=== PATIENT | male | born 1945 | race Caucasian/White ===

== ENCOUNTER 2020-06-23 14:15 | Inpatient (IN) | payer MEDICARE ==
[~2020-06-23] VITALS: Ht 180.3 cm; Wt 62.7 kg
--- NOTE | 2020-06-23 14:44 | NUR ---
Pt arrives with his niece who he lives with. Niece reports pt called this morning saying he was bleeding from his surgical scar as he caught a button on it. Bleeding controlled but very red, oozing red tinged drainage so decided to bring to ED. Reports allerlgies to penicillins. Reports surgery for right hernia repair was March 02 2020, hospitalized again April 05 for round 2 of antibiotics. Not currently taking antibiotics. Pt presents with swelling and redness in right groin and into scrotum. Currently oozing. Dr. Car collected swab from wound.
[2020-06-23 15:11] LABS: BASOPHILS % (AUTO) 1 % (0-1); EOSINOPHILS % (AUTO) 0 % (1-7); LYMPHOCYTES % (AUTO) 8 % (22-44); MEAN CORPUSCULAR HEMOGLOBIN 27.9 pg (27.5-34.5); MEAN CORPUSCULAR HGB CONC 32.8 g/dL (33.2-36.2); MEAN PLATELET VOLUME 7.6 fL (7.4-10.4); MONOCYTES % (AUTO) 13 % (2-9); NEUTROPHILS % (AUTO) 77 % (42-75); PLATELET COUNT 419 x10^3/uL (130-400); RED BLOOD COUNT 3.83 x10^6/uL (4.38-5.82); RED CELL DISTRIBUTION WIDTH 18.2 % (9.4-14.8)
[2020-06-23 15:21] LABS: ALANINE AMINOTRANSFERASE 33 U/L (12-78); ALBUMIN 2.4 g/dL (3.4-5.0); ANION GAP 8 mmol/L (5-15); CALCIUM 8.5 mg/dL (8.5-10.1); CHLORIDE 104 mmol/L (98-107); CREATININE 0.89 mg/dL (0.7-1.3)
[2020-06-23 15:23] LABS: ALKALINE PHOSPHATASE 132 U/L (45-117); BILIRUBIN,TOTAL 0.5 mg/dL (0.2-1.0); TOTAL PROTEIN 8.3 g/dL (6.4-8.2)
--- NOTE | 2020-06-23 15:44 | NUR ---
Requested Invanz from pharmacy. IV 20g started in left AC, second set of cutlrues drawn.
--- NOTE | 2020-06-23 15:50 | NUR ---
Pt back from CT.
--- NOTE | 2020-06-23 15:52 | NUR ---
Pt's niece Lindsey is going home. Her phone number is [phone]
[2020-06-23] MEDS ORDERED: OMNIPAQUE 350 MG/ML, 100ML BOTTLE ONE (15:56)
[2020-06-23] MEDS ORDERED: ERTAPENEM 1 GM in SODIUM CHLORIDE 0.9% 50 ML IV ONE (16:00)
[2020-06-23] MEDS ORDERED: SODIUM CHLORIDE FLUSH 10ML SYR IVF ONE (16:00)
--- NOTE | 2020-06-23 16:00 | NUR ---
Requested antibiotic from pharmacy.
[2020-06-23 16:05] LABS: ANISOCYTOSIS 1+; MD MORPH REVIEW ONLY; OVALOCYTES 1+
[2020-06-23 16:06] LABS: <PLATELET ESTIMATE> INCREASED; <PLT MORPHOLOGY> NORMAL PLT MORPH
--- NOTE | 2020-06-23 16:30 | NUR ---
Changed pt's depends and sheets. Hooked up to vehicle monitor technician.
--- NOTE | 2020-06-23 16:46 | NUR ---
Dr. Duncan at bedside.
[2020-06-23] MEDS ORDERED: ONDANSETRON ODT 4 MG PO PRN (17:00)
[2020-06-23] MEDS ORDERED: KETOROLAC 30 MG/1 ML IV PRN (17:00)
[2020-06-23] MEDS ORDERED: ACETAMINOPHEN 325 MG TABLET PO PRN (17:00)
[2020-06-23] MEDS: LACTATED RINGERS 1,000 ML IV SCH (17:00)
[2020-06-23] MEDS ORDERED: MELATONIN 5 MG TABLET PO PRN (17:00)
[2020-06-23] MEDS ORDERED: VANCOMYCIN PER PHARMACY MC PRN (17:00)
[2020-06-23] MEDS ORDERED: morphine SULFATE 10 MG/ML, 1ML IVPush PRN (17:00)
--- NOTE | 2020-06-23 17:26 | NUR ---
2 sets of blood cultures have been drawn and are in lab.
--- NOTE | 2020-06-23 17:26 | NUR ---
Received antibiotics from pharmacy.
--- NOTE | 2020-06-23 18:10 | NUR ---
Pt on quality assurance monitor final, changes in t-waves noted. Ordering EKG.
--- NOTE | 2020-06-23 18:56 | NUR ---
Called pharmacy to verify vancomycin.
--- NOTE | 2020-06-23 19:08 | NUR ---
Pt's niece Lindsey at bedside.
--- NOTE | 2020-06-23 19:11 | NUR ---
Pharmacy verified Vancomycin. Requesting with yellow sheet now.
[2020-06-23] MEDS ORDERED: VANCOMYCIN 1,500 MG in SODIUM CHLORIDE 0.9% 250 ML IV ONE (19:30)
[2020-06-23] MEDS ORDERED: PHARMACOKINETIC MONITORING MC PRN (19:30)
--- NOTE | 2020-06-23 19:30 | NUR ---
Pt's niece at bedside. Vancomycin infusing per [facility].
--- NOTE | 2020-06-23 20:10 | NUR ---
Report called to [facility].
[2020-06-23 20:51] VITALS: BP 127/67
[2020-06-23] MEDS ORDERED: DONE5TAB7 PO (23:13)
[2020-06-24 02:27] VITALS: BP 112/62
[2020-06-24] MEDS: LACTATED RINGERS 1,000 ML IV SCH ×2 (05:03→21:15)
[2020-06-24 06:20] LABS: BASOPHILS % (AUTO) 1 % (0-1); EOSINOPHILS % (AUTO) 3 % (1-7); LYMPHOCYTES % (AUTO) 12 % (22-44); MEAN CORPUSCULAR HEMOGLOBIN 27.8 pg (27.5-34.5); MEAN CORPUSCULAR HGB CONC 32.4 g/dL (33.2-36.2); MEAN PLATELET VOLUME 8.9 fL (7.4-10.4); MONOCYTES % (AUTO) 13 % (2-9); NEUTROPHILS % (AUTO) 71 % (42-75); PLATELET COUNT 355 x10^3/uL (130-400); RED BLOOD COUNT 3.75 x10^6/uL (4.38-5.82)
[2020-06-24 06:22] LABS: MD NO
[2020-06-24 06:27] LABS: ALANINE AMINOTRANSFERASE 26 U/L (12-78); ALBUMIN 1.8 g/dL (3.4-5.0); ANION GAP 8 mmol/L (5-15); CHLORIDE 107 mmol/L (98-107); CREATININE 0.65 mg/dL (0.7-1.3)
[2020-06-24 06:29] LABS: ALKALINE PHOSPHATASE 111 U/L (45-117); BILIRUBIN,TOTAL 0.5 mg/dL (0.2-1.0); TOTAL PROTEIN 6.9 g/dL (6.4-8.2)
[2020-06-24 07:16] VITALS: BP 138/71
[2020-06-24] MEDS: SENNA/DOCUSATE TABLET PO SCH (09:00)
[2020-06-24 12:22] VITALS: BP 124/73
[2020-06-24 12:38] VITALS: BP 164/93
[2020-06-24] MEDS ORDERED: BUPIVACAINE/PF 0.5% ONE (12:49)
[2020-06-24] MEDS: VANCOMYCIN 1,200 MG in SODIUM CHLORIDE 0.9% 250 ML IV SCH ×2 (13:00→19:45)
[2020-06-24] MEDS ORDERED: CHLORHEXIDINE 15 ML UDC ONE (13:20)
[2020-06-24] MEDS ORDERED: CHLORHEXIDINE 15 ML UDC MM ONE (13:30)
[2020-06-24] MEDS ORDERED: FENTANYL PF 100 MCG/2ML ONE ×2 (14:33→15:11)
[2020-06-24] MEDS ORDERED: ONDANSETRON 2MG/ML, 2ML ONE (14:46)
[2020-06-24] MEDS ORDERED: CEFAZOLIN 1,000 MG ONE (14:46)
[2020-06-24] MEDS ORDERED: PROPOFOL 10 MG/ML, 20ML ONE (14:46)
[2020-06-24] MEDS ORDERED: METHOCARBAMOL 1,000 MG in DEXTROSE 5% 100 ML IV PRN (16:00)
[2020-06-24] MEDS ORDERED: ONDANSETRON 2MG/ML, 2ML IVPush PRN (16:00)
[2020-06-24] MEDS ORDERED: PROMETHAZINE 25 MG SUPP PR PRN (16:00)
[2020-06-24] MEDS ORDERED: FENTANYL PF 100 MCG/2ML IV PRN (16:00)
[2020-06-24] MEDS ORDERED: HYDROmorphone 1 MG/ML, 1ML INJ IVPush PRN (16:00)
[2020-06-24] MEDS ORDERED: OXYcodone 5 MG/5 ML ORAL.SOL UDC PO PRN (16:00)
[2020-06-24] MEDS ORDERED: ACETAMINOPHEN 325 MG TABLET PO PRN (16:00)
[2020-06-24] MEDS ORDERED: PROMETHAZINE 25 MG/ML, 1ML IVPush PRN (16:00)
[2020-06-24 19:40] VITALS: BP 127/68
[2020-06-24] MEDS ORDERED: VANCOMYCIN 1,200 MG in SODIUM CHLORIDE 0.9% 250 ML IV SCH (22:00)
[2020-06-25 00:03] VITALS: BP 116/63
[2020-06-25] MEDS: KETOROLAC 30 MG/1 ML IV PRN ×2 (01:38→08:58)
[2020-06-25] MEDS: LACTATED RINGERS 1,000 ML IV SCH (04:33)
[2020-06-25 07:10] VITALS: BP 120/74
[2020-06-25] MEDS: MEROPENEM 1 GM in SODIUM CHLORIDE 0.9% 100 ML IV SCH ×2 (08:59→17:34)
[2020-06-25] MEDS: SENNA/DOCUSATE TABLET PO SCH (11:19)
[2020-06-25 15:28] VITALS: BP 113/60
[2020-06-25] MEDS: ENOXAPARIN 40 MG/0.4 ML SQ SCH (17:36)
[2020-06-25 19:56] VITALS: BP 105/62
[2020-06-25] MEDS: VANCOMYCIN 1,200 MG in SODIUM CHLORIDE 0.9% 250 ML IV SCH (19:58)
[2020-06-25] MEDS: SODIUM CHLORIDE 0.9% 1,000 ML IV SCH (19:58)
[2020-06-26 01:00] VITALS: BP 112/63
[2020-06-26] MEDS: MEROPENEM 1 GM in SODIUM CHLORIDE 0.9% 100 ML IV SCH ×3 (01:15→16:50)
[2020-06-26] MEDS: SODIUM CHLORIDE 0.9% 1,000 ML IV SCH (06:26)
[2020-06-26 06:59] VITALS: BP 117/70
[2020-06-26] MEDS: POLYETHYLENE GLYCOL 17 GM PACKET PO PRN (08:26)
[2020-06-26] MEDS: SENNA/DOCUSATE TABLET PO SCH (08:26)
[2020-06-26 14:30] VITALS: BP 112/65
[2020-06-26] MEDS ORDERED: POLYETHYLENE GLYCOL 17 GM PACKET NG ONE (15:00)
[2020-06-26] MEDS: ENOXAPARIN 40 MG/0.4 ML SQ SCH (15:27)
[2020-06-26 19:55] VITALS: BP 106/59
[2020-06-26] MEDS: VANCOMYCIN 1,200 MG in SODIUM CHLORIDE 0.9% 250 ML IV SCH (20:16)
[2020-06-27] MEDS: MEROPENEM 1 GM in SODIUM CHLORIDE 0.9% 100 ML IV SCH ×3 (01:16→17:19)
[2020-06-27 01:18] VITALS: BP 118/64
[2020-06-27 04:49] LABS: CREATININE 0.69 mg/dL (0.7-1.3)
[2020-06-27 07:39] VITALS: BP 116/65
[2020-06-27 08:25] LABS: BASOPHILS % (AUTO) 1 % (0-1); EOSINOPHILS % (AUTO) 10 % (1-7); LYMPHOCYTES % (AUTO) 15 % (22-44); MEAN CORPUSCULAR HEMOGLOBIN 27.8 pg (27.5-34.5); MEAN CORPUSCULAR HGB CONC 32.2 g/dL (33.2-36.2); MEAN PLATELET VOLUME 8.5 fL (7.4-10.4); MONOCYTES % (AUTO) 16 % (2-9); NEUTROPHILS % (AUTO) 58 % (42-75); PLATELET COUNT 379 x10^3/uL (130-400); RED BLOOD COUNT 3.92 x10^6/uL (4.38-5.82); RED CELL DISTRIBUTION WIDTH 18.4 % (9.4-14.8)
[2020-06-27] MEDS: SENNA/DOCUSATE TABLET PO SCH (08:40)
[2020-06-27] MEDS: POLYETHYLENE GLYCOL 17 GM PACKET PO PRN (08:40)
[2020-06-27 09:01] LABS: MD SCAN
[2020-06-27] MEDS: KETOROLAC 30 MG/1 ML IV PRN (11:02)
[2020-06-27 14:09] VITALS: BP 101/50
[2020-06-27] MEDS: VANCOMYCIN 1,400 MG in SODIUM CHLORIDE 0.9% 250 ML IV SCH (14:21)
[2020-06-27] MEDS ORDERED: PINK LADY ENEMA 490 ML BOTTLE PR SCH (16:30)
[2020-06-27] MEDS: METOCLOPRAMIDE 5 MG/ML, 2ML IVPush SCH (18:00)
[2020-06-27] MEDS: ENOXAPARIN 40 MG/0.4 ML SQ SCH (18:01)
[2020-06-27 19:55] VITALS: BP 114/62
[2020-06-27 21:35] VITALS: BP 128/62
[2020-06-28 00:02] VITALS: BP 108/65
[2020-06-28] MEDS: METOCLOPRAMIDE 5 MG/ML, 2ML IVPush SCH ×4 (00:06→17:37)
[2020-06-28] MEDS: MEROPENEM 1 GM in SODIUM CHLORIDE 0.9% 100 ML IV SCH ×3 (01:16→17:36)
[2020-06-28 06:00] VITALS: BP 115/68
[2020-06-28 07:22] VITALS: BP 133/68
[2020-06-28] MEDS: SENNA/DOCUSATE TABLET PO SCH (08:59)
[2020-06-28] MEDS: POLYETHYLENE GLYCOL 17 GM PACKET PO PRN (09:00)
[2020-06-28 13:28] VITALS: BP 118/66
[2020-06-28] MEDS: VANCOMYCIN 1,400 MG in SODIUM CHLORIDE 0.9% 250 ML IV SCH (14:52)
[2020-06-28] MEDS: ENOXAPARIN 40 MG/0.4 ML SQ SCH (17:37)
[2020-06-28 19:14] VITALS: BP 93/61
[2020-06-29 00:01] VITALS: BP 115/74
[2020-06-29] MEDS: MEROPENEM 1 GM in SODIUM CHLORIDE 0.9% 100 ML IV SCH ×3 (01:10→16:47)
[2020-06-29] MEDS: METOCLOPRAMIDE 5 MG/ML, 2ML IVPush SCH ×4 (01:10→16:47)
[2020-06-29 07:06] VITALS: BP 104/68
[2020-06-29] MEDS: SENNA/DOCUSATE TABLET PO SCH (07:59)
[2020-06-29 13:27] VITALS: BP 131/63
[2020-06-29] MEDS: LINEZOLID 600 MG TABLET PO SCH ×2 (14:15→20:48)
[2020-06-29] MEDS: ENOXAPARIN 40 MG/0.4 ML SQ SCH (16:30)
[2020-06-29 18:37] VITALS: BP 103/53
[2020-06-30] MEDS: METOCLOPRAMIDE 5 MG/ML, 2ML IVPush SCH ×3 (00:31→11:31)
[2020-06-30 01:09] VITALS: BP 90/56
[2020-06-30] MEDS: MEROPENEM 1 GM in SODIUM CHLORIDE 0.9% 100 ML IV SCH ×2 (01:13→08:34)
[2020-06-30 07:06] VITALS: BP 107/61
[2020-06-30] MEDS: POLYETHYLENE GLYCOL 17 GM PACKET PO PRN (08:33)
[2020-06-30] MEDS: LINEZOLID 600 MG TABLET PO SCH (08:34)
[2020-06-30] MEDS: SENNA/DOCUSATE TABLET PO SCH (08:34)
[2020-06-30] MEDS ORDERED: LINE600T15 PO (13:47)
[2020-06-30] MEDS ORDERED: MERO1VIA24 IVPB (13:47)
[2020-06-30] MEDS ORDERED: LACT1CAP35 PO (13:48)
[2020-06-30 13:54] VITALS: BP 112/58
== END 2020-06-30 16:45 | DRG 907 ==
LOC: ED 14:54 → EDIP 16:44 → SUATTDRO 16:49 → 3N 20:50
PROVIDERS: ADMIT Internal Medicine; ATTEND Internal Medicine
PROC: 0WPF0JZ Removal of Synthetic Substitute from Abdominal Wall, Open Approach (ICD-10-PCS; 2020-06-24)
PROC: 0J9C0ZZ Drainage of Pelvic Region Subcutaneous Tissue and Fascia, Open Approach (ICD-10-PCS; principal; 2020-06-24 14:00)
PROC: 02HV33Z Insertion of Infusion Device into Superior Vena Cava, Percutaneous Approach (ICD-10-PCS; 2020-06-28)
PROC: B5181ZA Fluoroscopy of Superior Vena Cava using Low Osmolar Contrast, Guidance (ICD-10-PCS; 2020-06-28)
PROC: B548ZZA Ultrasonography of Superior Vena Cava, Guidance (ICD-10-PCS; 2020-06-28)
DX: T85.79XA Infection and inflammatory reaction due to other internal prosthetic devices, implants and grafts, initial encounter (principal); A41.9 Sepsis, unspecified organism; K65.1 Peritoneal abscess; E43 Unspecified severe protein-calorie malnutrition; Z68.1 Body mass index [BMI] 19.9 or less, adult; L02.214 Cutaneous abscess of groin; F03.90 Unspecified dementia, unspecified severity, without behavioral disturbance, psychotic disturbance, mood disturbance, and anxiety; Z88.0 Allergy status to penicillin; K40.90 Unilateral inguinal hernia, without obstruction or gangrene, not specified as recurrent; K59.00 Constipation, unspecified; N49.2 Inflammatory disorders of scrotum; Y83.2 Surgical operation with anastomosis, bypass or graft as the cause of abnormal reaction of the patient, or of later complication, without mention of misadventure at the time of the procedure; Z82.49 Family history of ischemic heart disease and other diseases of the circulatory system; Z20.822 Contact with and (suspected) exposure to COVID-19
CPT/HCPCS: 36415; 36573; 74177; 80053; 80202; 82565; 83605; 85025; 87040; 87070; 87075; 87076; 87081; 87205; 87635; 88300; 93005; 96374; 99285; G0378; J0690; J1335; J1650; J1885; J2185; J2405; J2704; J3010; J3370; Q9967; C1751; J2270; J2765; J7030; J7050; J7120